=== PATIENT | female | born 1985 | race Caucasian/White ===

== ENCOUNTER 2022-05-27 13:15 | Emergency (ER) | payer OTHER ==
[~2022-05-27] VITALS: Ht 165.1 cm; Wt 68.0 kg
[2022-05-27 13:22] VITALS: BP 125/77
[2022-05-27 16:02] LABS: BASOPHILS % 0.4 % (0.0-2.0); EOSINOPHILS % 0.2 % (0.0-5.0); HEMATOCRIT. 41.9 % (36.0-48.0); HEMOGLOBIN. 13.7 g/dL (12.0-16.0); MEAN CORPUSCULAR HEMOGLOBIN 28.7 pg (28.0-32.0); MEAN PLATELET VOLUME 8.8 fl (7.4-10.4); NEUTROPHILS % 83.4 % (40.0-76.0); PLATELET 290 x1000/uL (130-400); RED BLOOD CELL COUNT 4.76 mill/uL (4.2-5.4); RED CELL DISTRIBUTION WIDTH 14.3 % (11.6-14.6)
[2022-05-27 16:09] LABS: CHLORIDE 105 mEq/L (98-107)
[2022-05-27 16:33] LABS: HCG SCREEN NEGATIVE
[2022-05-27 16:53] LABS: CLARITY URINE CLOUDY (CLEAR); COLOR URINE YELLOW (YELLOW); KETONES URINE 2+ (NEGATIVE); LEUKOCYTE ESTERASE URINE 1+ (NEGATIVE); NITRITE URINE POSITIVE (NEGATIVE); OCCULT BLOOD URINE 3+ (NEGATIVE); PH URINE 5.5 (4.5-8.0); PROTEIN URINE TRACE (NEGATIVE); SPECIFIC GRAVITY URINE 1.025 (1.005-1.030); UROBILINOGEN URINE 0.2 E.U./dL (0.2-1.0)
[2022-05-27] MEDS ORDERED: NITR-87 MT (16:57)
== END 2022-05-27 17:27 | disposition home or self-care (01) ==
LOC: ER 13:15
DX: N39.0 Urinary tract infection, site not specified (principal); R53.1 Weakness; F41.9 Anxiety disorder, unspecified; G40.909 Epilepsy, unspecified, not intractable, without status epilepticus
CPT/HCPCS: 36415; 80053; 81003; 81025; 84703; 85025; 93005; 99285